=== PATIENT | male | born 1955 | race Caucasian/White ===

== ENCOUNTER 2016-12-23 06:50 | Emergency (ER) | payer OTHER ==
[~2016-12-23] VITALS: Ht 160 cm; Wt 126.0 kg
[~2016-12-23 06:50] MED LIST: FUROSEMIDE40 MG PO; GLIPIZIDE5 MG PO; LISINOPRIL30 MG PO; METFORMIN HCL500 MG PO; METOPROLOL SUCC25 MG PO; POTASSIUM CHLO20 ME2 PO; ULTRAM50 MG PO
[2016-12-23] MEDS ORDERED: FENOFIBRATE160 M1 PO (08:03)
[2016-12-23] MEDS ORDERED: AMLODIPINE BESYL5 MG PO (08:04)
[2016-12-23] MEDS ORDERED: SIMVASTATIN10 MG PO (08:05)
[2016-12-23] MEDS ORDERED: LISINOPRIL40 MG PO (08:06)
[2016-12-23] MEDS ORDERED: METOPROLOL SUC100 MG PO (08:06)
[2016-12-23] MEDS ORDERED: FUROSEMIDE20 MG PO (08:07)
[2016-12-23 09:21] VITALS: BP 161/76
== END 2016-12-23 09:27 | disposition home or self-care (01) ==
LOC: EME 06:50
DX: S09.90XA Unspecified injury of head, initial encounter (principal); S01.01XA Laceration without foreign body of scalp, initial encounter; S40.211A Abrasion of right shoulder, initial encounter; S60.221A Contusion of right hand, initial encounter; W20.8XXA Other cause of strike by thrown, projected or falling object, initial encounter; Y92.002 Bathroom of unspecified non-institutional (private) residence as the place of occurrence of the external cause
CPT/HCPCS: 73110; 99281; 99284

== ENCOUNTER 2017-01-30 21:06 | Emergency (ER) | payer OTHER ==
[~2017-01-30] VITALS: Ht 172.7 cm; Wt 118.8 kg
[~2017-01-30 21:06] MED LIST changes: +AMLODIPINE BESYL5 MG PO; +FENOFIBRATE160 M1 PO; +FUROSEMIDE20 MG PO; +LISINOPRIL40 MG PO; +METOPROLOL SUC100 MG PO; +SIMVASTATIN10 MG PO
[2017-01-30 23:37] LABS: HEMATOCRIT 41.7 % (38.0-50.0); MCH 27.3 PG (29.0-34.0); MCHC 34.1 G/DL (30.0-36.0); MCV 80.2 FL (86-99); MEAN PLAT.VOLUME 9.5 uM^3 (9.0-12.4); PLATELET COUNT 172 K/uL (156-360); RBC DIS.WIDTH-CV 13.2 % (11.8-14.6); RBC DIS.WIDTH-SD 37.9 % (39-53); WHITE BLOOD COUNT 4.7 K/uL (4.1-10.2)
[2017-01-30 23:47] LABS: CHLORIDE 102 mEq/L (99-109); SODIUM 136 mEq/L (136-147)
[2017-01-30 23:50] LABS: ANION GAP 9 MEQ/L (2-14)
[2017-01-30 23:53] LABS: UREA NITROGEN (BUN) 15 mg/dL (9-23)
[2017-01-30 23:56] LABS: GLUCOSE 521 mg/dL (70-99)
[2017-01-30 23:58] LABS: GFR ESTIMATE (CALCULATED) 51 mL/min/
[2017-01-31 00:04] LABS: CARBON DIOXIDE (BICARBONATE) 28.5 MEQ/L (20-31)
[2017-01-31 00:41] LABS: POINT-OF-CARE METER ID UU13113702
[2017-01-31 01:05] LABS: POINT-OF-CARE METER ID UU13113702
[2017-01-31 01:37] LABS: POINT-OF-CARE METER ID UU13113702
[2017-01-31 02:24] LABS: CREATININE 0.4 mg/dL (0.6-1.3); POTASSIUM 3.7 mEq/L (3.7-5.4)
[2017-01-31] MEDS ORDERED: METFORMIN HCL500 MG PO (02:32)
[2017-01-31 02:37] VITALS: BP 162/83
[2017-01-31 12:20] LABS: POINT-OF-CARE METER ID UU13113778
== END 2017-01-31 02:39 | disposition home or self-care (01) ==
LOC: EME 21:06
PROVIDERS: Emergency Medicine; Physician Assistant Medical
DX: E11.65 Type 2 diabetes mellitus with hyperglycemia (principal); N48.1 Balanitis; I10 Essential (primary) hypertension; E78.5 Hyperlipidemia, unspecified
CPT/HCPCS: 80047; 80048; 81003; 82010; 82803; 82948; 85027; 99281; 99285; J7030